=== PATIENT | male | born 1945 | race Caucasian/White ===

== ENCOUNTER 2020-09-29 11:28 | Day surgery (SDC) | payer MEDICARE, OTHER, SELFPAY ==
[2020-09-29] MEDS: Tropicam./Phenyleph. (1/2.5%) 5 ML BTL OS ×3 (11:42→11:59)
[2020-09-29 11:47] VITALS: BP 155/97; PULSE 93; RESP 20; TEMP 35.9; O2SAT 97
[2020-09-29] MEDS: Tetracaine 0.5% 4 ML BTL OS (12:17)
[2020-09-29] MEDS: Povidone-Iodine Ophth 30 ML BTL (12:17)
[2020-09-29] MEDS: Balanced Salt Soln.-PLUS 500 ML BAG (12:21)
[2020-09-29] MEDS: Lidocaine 1% Pres-Free 5 ML VIAL (12:21)
[2020-09-29] MEDS: Duovisc Viscoelastic System EACH 1 EACH (12:21)
[2020-09-29] MEDS: Lidocaine 2% Jelly 6 ML SYR (12:21)
--- NOTE | 2020-09-29 12:46 | W.PM.DSUDISC ---
Discharge Plan Disposition Patient Disposition: HOME Condition: Good Discharge Details Attending Provider: Kevin Dunham Primary Care Provider: Marielena Ruiz Home Meds and New Rx's Prescriptions: No Action multivitamin Tablet 1 tab PO DAILY RF: 0 atorvastatin 80 mg Tablet 80 mg PO DAILY RF: 0 diltiazem HCl [Cardizem CD] 180 mg Capsule,Extended Release 24hr 180 mg PO DAILY RF: 0 losartan 25 mg Tablet 25 mg PO DAILY RF: 0 finasteride [Proscar] 5 mg Tablet 5 mg PO DAILY RF: 0 Xarelto 20 mg Tablet 20 mg PO DAILY RF: 0 melatonin 10 mg Tablet 10 mg PO HS PRNRF: 0 Discharge Instructions Stand Alone Forms: Post-op Topical Cataract, Yoselin Savage (DSU) Discharge Orders Discharge Orders: Discharge Order (Routine); Ordered 09/29/20 Ordered By: Kevin Dunham DS: Diagnosis Discharge Diagnosis (1) Cortical cataract of left eye: Status: Resolved (2) Nuclear sclerotic cataract of left eye: Status: Resolved
--- NOTE | 2020-09-29 12:47 | W.PM.OP ---
Date of service: 09/29/20 Time of Service: 12:48 Operative Note Operative Note DATE OF PROCEDURE: 09/29/20 PRE-OP DIAGNOSIS: Nuclear/cortical cataract, left eye Poorly dilating pupil, left eye POST-OP DIAGNOSIS: same PROCEDURE: Cataract extraction by phacoemulsification with intraocular lens implantation, left eye, with pupillary expansion device SURGEON: Kevin Dunham ANESTHESIA: MAC and local (sub-tenon's anesthetic infiltration) ESTIMATED BLOOD LOSS: 0 PATHOLOGY: none sent COMPLICATIONS: None Patient was transported to: same day Patient's condition: stable Implants: Jean Pierre [employer] Jean [employer] / [employer] Tecnis [id number] Indications: Progressive decreased vision, left eye Procedure Description: CATARACT SURGERY OPERATIVE REPORT PREOPERATIVE DIAGNOSIS: 1. Nuclear/cortical cataract, left eye 2. Poorly dilating pupil, left eye POSTOPERATIVE DIAGNOSIS: Same OPERATION: 1. Cataract extraction using phacoemulsification with posterior chamber intraocular lens implant, left eye. 2. Pupillary dilation and iris stabilization using Malyugin Ring IOL; IOL Client Services Analyst/Model: Jean Pierre & Jean Pierre / MELINA Tecnis [id number] IOL Power: + 22.0 diopters IOL Serial Number: [id number] Optic Diameter: 6.0 mm Haptic/Overall Diameter: 13.00 mm PHACO INFO: Tre Array Stormurion Vision System with OZil and Active Fluidics Cumulative Dispersed Energy (CDE): 4.43 seconds SURGEON: Kevin Dunham MD, DREA ANESTHESIA: Monitored Anesthesia Care (MAC), with local sub-tenon's anesthetic infiltration COMPLICATIONS: None SPECIMENS: None INDICATIONS FOR PROCEDURE: The patient is a 74-year-old gentleman with history of diminished visual acuity in both eyes secondary to the development of bilateral nuclear and cortical cataract. 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 The option of cataract surgery was offered to the patient and he wished to proceed. He understands that postoperative visual acuity will be limited by the presence of his pre-existing macular degeneration. PROCEDURE: The correct surgical eye was identified and marked as the left eye and the pupil was dilated in the preoperative area using mydriatics, cycloplegics, and NSAIDS (except in aspirin allergic patients). The dilated pupil size was 4.5 mm. Oral sedation was administered in the form of an Imprimis MKO Melt (midazolam 3mg/ketamine 25mg/ondansetron 2mg). The patient was brought to the operating room where cardiopulmonary monitoring was instituted and surgical time-out was performed, confirming the correct operative eye and IOL power. Topical anesthesia was administered and ophthalmic povidone-iodine 5% was instilled into the conjunctival fornices. Lidocaine gel was applied to the cornea and the darshan-ocular area was prepped with Betadine 10% solution and draped in the usual sterile fashion for intraocular surgery, including an aperture drape. A Tegaderm transparent film dressing was cut in half and used to cover the lashes and lid margins. Care was taken to sequester the lashes and lid margins under the Tegaderm dressing. A lid speculum was placed between the lids of the operative eye and the Panda-Bonnie operating microscope was maneuvered into position. Clara scissors were then used to make a conjunctival buttonhole approximately 6mm posterior to the limbus in the inferonasal quadrant. Blunt dissection was carried out to expose bare sclera, and a blunt-tipped sub-tenon?s anesthesia cannula was introduced and passed posteriorly along the globe where non-preserved plain lidocaine was injected into posterior sub-Tenon?s space. A sideport knife was used to make a paracentesis port superiorly/superiortemporally. Intraocular phenylephrine/lidocaine was injected into the anterior chamber. The anterior chamber was then filled with viscoelastic. A 2.4mm keratome knife was used to create a half-thickness groove at the limbus and then to construct a three-plane near-clear corneal tunnel extending 2.0mm into clear cornea at the temporal position. A 7.0 mm Malyugin Ring was then inserted into the pupillary space and engaged with the Kuglen hook. A flap was raised on the anterior capsule and capsulorhexis forceps were used to complete a continuous curvilinear capsulorhexis of 5.5 mm. Balanced salt solution was then used to perform cortical cleaving hydrodissection and nuclear hydrodelineation until the lens could be freely rotated within the capsular bag. The lens nucleus was then disassembled and removed within the capsular bag and iris plane using phacoemulsification. Residual cortical material was removed using the 45-degree angled silicone I/A tip with 0.3mm port. The posterior capsule was carefully polished to remove as much residual lens epithelial cells as safely possible. The capsular bag was then inflated and the anterior chamber deepened with viscoelastic. The lens implant described above was inserted into the capsular bag using the MELINA [place] Injector. A Kuglen hook was used to dial the IOL into position. The Malyugin Ring was removed in the reverse order of its insertion. Residual viscoelastic was then removed first from posterior to the IOL, then from the anterior chamber using the I/A handpiece. The lens implant was noted to center nicely within the capsular bag. The incisions were stromally hydrated, and the anterior chamber was reformed using BSS. Then 0.5cc of moxifloxacin 1.0mg/ml were injected into the capsular bag and anterior chamber. The incisions were checked with a Weck spear and found to be secure. Several drops of ophthalmic povidone-iodine 5% were then applied to the eye followed by two drops of Imprimis combination prednisolone/moxifloxacin/nepafenac solution. The drapes were removed and a clear plastic protective eye shield was placed over the eye. The patient was then returned to [facility] Day Surgery in stable condition.
[2020-09-29 13:14] VITALS: BP 129/77; PULSE 86; RESP 16; TEMP 36.3; O2SAT 96
== END 2020-09-29 13:30 | disposition home or self-care (01) ==
PROVIDERS: PCP Family Medicine; Visit Provider Ophthalmology
PROC: (CPT 66982; principal; 2020-09-29 14:30)
DX: H25.012 Cortical age-related cataract, left eye (principal); H25.12 Age-related nuclear cataract, left eye; H57.09 Other anomalies of pupillary function; G47.33 Obstructive sleep apnea (adult) (pediatric); Z86.711 Personal history of pulmonary embolism
CPT/HCPCS: 66982; V2632

== ENCOUNTER 2020-10-13 07:01 | Day surgery (SDC) | payer MEDICARE, OTHER, SELFPAY ==
[2020-10-13 07:05] VITALS: BP 153/99; PULSE 78; RESP 19; TEMP 36.1; O2SAT 99
[2020-10-13] MEDS: Tropicam./Phenyleph. (1/2.5%) 5 ML BTL OD ×3 (07:20→07:30)
[2020-10-13] MEDS: Duovisc Viscoelastic System EACH 1 EACH (08:16)
[2020-10-13] MEDS: Balanced Salt Soln.-PLUS 500 ML BAG (08:16)
[2020-10-13] MEDS: Lidocaine 2% Jelly 6 ML SYR (08:17)
[2020-10-13] MEDS: Lidocaine 1% Pres-Free 5 ML VIAL (08:17)
[2020-10-13] MEDS: Povidone-Iodine Ophth 30 ML BTL (08:19)
[2020-10-13] MEDS: Tetracaine 0.5% 4 ML BTL OD (08:21)
--- NOTE | 2020-10-13 08:36 | W.PM.DSUDISC ---
Discharge Plan Disposition Patient Disposition: HOME Condition: Good Discharge Details Attending Provider: Kevin Dunham Primary Care Provider: Marielena Ruiz Home Meds and New Rx's Prescriptions: No Action multivitamin Tablet 1 tab PO DAILY RF: 0 atorvastatin 80 mg Tablet 80 mg PO DAILY RF: 0 diltiazem HCl [Cardizem CD] 180 mg Capsule,Extended Release 24hr 180 mg PO DAILY RF: 0 losartan 25 mg Tablet 25 mg PO DAILY RF: 0 finasteride [Proscar] 5 mg Tablet 5 mg PO DAILY RF: 0 Xarelto 20 mg Tablet 20 mg PO DAILY RF: 0 melatonin 10 mg Tablet 10 mg PO HS PRNRF: 0 Discharge Instructions Stand Alone Forms: Post-op Topical Cataract Discharge Orders Discharge Orders: Discharge Order (Routine); Ordered 10/13/20 Ordered By: Kevin Dunham DS: Diagnosis Discharge Diagnosis (1) Cortical cataract of right eye: Status: Resolved (2) Nuclear sclerotic cataract of right eye: Status: Resolved
--- NOTE | 2020-10-13 08:38 | W.PM.OP ---
Date of service: 10/13/20 Time of Service: 08:38 Operative Note Operative Note DATE OF PROCEDURE: 10/13/20 PRE-OP DIAGNOSIS: Nuclear/cortical cataract, right eye POST-OP DIAGNOSIS: same PROCEDURE: Cataract extraction using phacoemulsification with intraocular lens implant, right eye SURGEON: Kevin Dunham ANESTHESIA: MAC and local (sub-tenon's anesthetic infiltration) ESTIMATED BLOOD LOSS: 0 PATHOLOGY: none sent COMPLICATIONS: None Patient was transported to: same day Patient's condition: stable Implants: Jean Pierre and Jean [employer] Vision / [employer] Tecnis [id number] intraocular lens Indications: Progressive decreased vision due to cataract, right eye Procedure Description: CATARACT SURGERY OPERATIVE REPORT PREOPERATIVE DIAGNOSIS: Nuclear/cortical cataract, right eye POSTOPERATIVE DIAGNOSIS: Same OPERATION: Cataract extraction using phacoemulsification with posterior chamber intraocular lens implant, right eye. IOL: IOL [employer] Professor/Model: [employer] Vision / MELINA Tecnis ZCB00 IOL Power: + 22.5 diopters IOL Serial Number: [id number] Optic Diameter: 6.0mm Haptic/Overall Diameter: 13.0mm PHACO INFO: Tre [employer]urion Vision System with OZil and Active Fluidics Cumulative Dispersed Energy (CDE): 4.15 seconds SURGEON: Kevin Dunham MD, DREA ANESTHESIA: Monitored Anesthesia Care (MAC), with local sub-tenon's anesthetic infiltration COMPLICATIONS: None SPECIMENS: None INDICATIONS FOR PROCEDURE: Patient is a 75-year-old gentleman with history of diminished visual acuity in both eyes secondary to the bone of bilateral nuclear and cortical cataract. He is significantly symptomatic that he desires cataract surgery attempt improve and maximize his vision. He is already undergone cataract surgery in the left eye and is doing well postoperatively. PROCEDURE: The correct surgical eye was identified and marked as the right eye and the pupil was dilated in the preoperative area using mydriatics and cycloplegics. The dilated pupil size was 6.5 mm. Oral sedation was administered in the form of an Imprimis MKO Melt (midazolam 3mg/ketamine 25mg/ondansetron 2mg). The patient was brought to the operating room where cardiopulmonary monitoring was instituted and surgical time-out was performed, confirming the correct operative eye and IOL power. Topical anesthesia was administered and ophthalmic povidone-iodine 5% was instilled into the conjunctival fornices. Lidocaine gel was applied to the cornea and the darshan-ocular area was prepped with Betadine 10% solution and draped in the usual sterile fashion for intraocular surgery, including an aperture drape. A Tegaderm transparent film dressing was cut in half and used to cover the lashes and lid margins. Care was taken to sequester the lashes and lid margins under the Tegaderm dressing. A lid speculum was placed between the lids of the operative eye and the Panda-Bonnie operating microscope was maneuvered into position. Clara scissors were then used to make a conjunctival buttonhole approximately 6mm posterior to the limbus in the inferonasal quadrant. Blunt dissection was carried out to expose bare sclera, and a blunt-tipped sub-tenon?s anesthesia cannula was introduced and passed posteriorly along the globe where non-preserved plain lidocaine was injected into posterior sub-Tenon?s space. A sideport knife was used to make a paracentesis port inferiortemporally. Intraocular phenylephrine/lidocaine was injected into the anterior chamber. The anterior chamber was then filled with viscoelastic. A 2.4mm keratome knife was used to create a half-thickness groove at the limbus and then to construct a three-plane near-clear corneal tunnel extending 2.0mm into clear cornea in the superiortemporal position. . A flap was raised on the anterior capsule and capsulorhexis forceps were used to complete a continuous curvilinear capsulorhexis of 5.5 mm. Balanced salt solution was then used to perform cortical cleaving hydrodissection and nuclear hydrodelineation until the lens could be freely rotated within the capsular bag. The lens nucleus was then disassembled and removed within the capsular bag and iris plane using phacoemulsification. Residual cortical material was removed using the I/A handpiece. The posterior capsule was carefully polished to remove as much residual lens epithelial cells as safely possible. The capsular bag was then inflated and the anterior chamber deepened with viscoelastic. The lens implant described above was inserted into the capsular bag using the MELINA [place] Injector. A Kuglen hook was used to dial the IOL into position. Residual viscoelastic was then removed first from posterior to the IOL, then from the anterior chamber using the I/A handpiece. The lens implant was noted to center nicely within the capsular bag. The incisions were stromally hydrated, and the anterior chamber was reformed using BSS. Then 0.5cc of moxifloxacin 1.0mg/ml were injected into the capsular bag and anterior chamber. The incisions were checked with a Weck spear and found to be secure. Several drops of ophthalmic povidone-iodine 5% were then applied to the eye followed by two drops of Imprimis combination prednisolone/moxifloxacin/nepafenac solution. The drapes were removed and a clear plastic protective eye shield was placed over the eye. The patient was then returned to Same Day Surgery in stable condition.
[2020-10-13 09:05] VITALS: BP 120/77; PULSE 72; RESP 22; TEMP 36.7; O2SAT 97
== END 2020-10-13 09:05 | disposition home or self-care (01) ==
PROVIDERS: PCP Family Medicine; Visit Provider Ophthalmology
PROC: (CPT 66984; principal; 2020-10-13 08:30)
DX: H25.011 Cortical age-related cataract, right eye (principal); H25.11 Age-related nuclear cataract, right eye; Z98.42 Cataract extraction status, left eye; Z96.1 Presence of intraocular lens; G47.33 Obstructive sleep apnea (adult) (pediatric); Z86.711 Personal history of pulmonary embolism
CPT/HCPCS: 66984; V2632